=== PATIENT | male | born 1970 | race Caucasian/White ===

== ENCOUNTER 2018-11-13 10:40 | Emergency (ER) | payer MEDICAID, OTHER ==
[~2018-11-13] VITALS: Ht 165.1 cm; Wt 66.8 kg
[~2018-11-13 10:40] MED LIST: BUPR100T11 PO; NICO-487 TD
[2018-11-13 10:57] VITALS: BP 103/71
--- NOTE | 2018-11-13 11:43 | NUR ---
Discharge instructions discussed with patient including when to return to emergency department, verbalizes understanding. Prescription provided with instruction for use. Patient ambulates with steady gait to discharge desk in no acute distress.
== END 2018-11-13 11:45 | disposition home or self-care (01) ==
LOC: ED 11:30
DX: R21 Rash and other nonspecific skin eruption (principal); F32.9 Major depressive disorder, single episode, unspecified; F17.200 Nicotine dependence, unspecified, uncomplicated
CPT/HCPCS: 99283

== ENCOUNTER 2019-04-05 10:58 | Emergency (ER) | payer OTHER ==
[~2019-04-05] VITALS: Ht 165.1 cm; Wt 65.0 kg
--- NOTE | 2019-04-05 11:13 | NUR ---
PT A&OX4, RESP EVEN & UNLABORED, DENIES DYSPNEA/SOB, SPEECH CLEAR, SKIN WNL. C/O UPPER MEDIAL CP - STARTED YESTERDAY AT HOME. WORKED ALL DAY - CONSTRUCTION. STARTED GETTING DIZZY, ARM NUMBNESS. NO RECENT URI. + SMOKER. NO MEDS TAKEN TODAY FOR SX. DENIES CARDIAC HX. LAST ORAL INTAKE: FOOD YESTERDAY, WATER TODAY.
[2019-04-05] MEDS ORDERED: KETOROLAC 60 MG/2 ML ONE (11:28)
[2019-04-05] MEDS ORDERED: KETOROLAC 60 MG/2 ML IM ONE (11:30)
--- NOTE | 2019-04-05 11:33 | NUR ---
TORODAL GIVEN PER EMAR
[2019-04-05 12:49] VITALS: BP 117/71
== END 2019-04-05 12:51 | disposition home or self-care (01) ==
LOC: ED 11:49
DX: R07.89 Other chest pain (principal); R09.1 Pleurisy; F32.9 Major depressive disorder, single episode, unspecified; F17.200 Nicotine dependence, unspecified, uncomplicated
CPT/HCPCS: 71045; 93005; 96372; 99283; J1885

== ENCOUNTER 2019-08-06 08:01 | Emergency (ER) ==
[~2019-08-06] VITALS: Ht 165.1 cm; Wt 64.3 kg
[2019-08-06 08:31] VITALS: BP 120/50
--- NOTE | 2019-08-06 09:06 | NUR ---
PT STATES HE IS HERE FOR OCCASSIONAL COUGH WITH GREEN SPUTUM, SORE THROAT AND DIFFICULTY SWALLOWING. STREP TEST IN PROCESS. PT RESTONG ON GURNEY, PULSE OX IN PLACE.
[2019-08-06] MEDS ORDERED: ACETAMINOPHEN 500 MG TABLET ONE (09:24)
[2019-08-06] MEDS ORDERED: KETOROLAC 30 MG/1 ML ONE (09:24)
--- NOTE | 2019-08-06 09:29 | NUR ---
PT MEDICATED PER MAR.
[2019-08-06] MEDS ORDERED: ACETAMINOPHEN 500 MG TABLET PO ONE (09:30)
[2019-08-06] MEDS ORDERED: KETOROLAC 30 MG/1 ML IM ONE (09:30)
--- NOTE | 2019-08-06 09:42 | NUR ---
Patient/Caregiver given discharge instructions and they have confirmed that they understand the instructions. Patient ambulatory with steady gait.
== END 2019-08-06 09:43 | disposition home or self-care (01) ==
LOC: ED 09:16
DX: J02.0 Streptococcal pharyngitis (principal)
CPT/HCPCS: 71046; 87880; 96372; 99284; J1885